=== PATIENT | male | born 1960 | race Caucasian/White ===

== ENCOUNTER 2020-11-20 17:38 | Inpatient (IN) | payer BC ==
[~2020-11-20] VITALS: Ht 180.3 cm; Wt 105.7 kg
[2020-11-20 18:28] LABS: HEMOGLOBIN 16.5 gm/dl (14.0-17.5); RED BLOOD COUNT 5.15 M/UL (4.20-5.50); WHITE BLOOD COUNT 7.5 K/UL (4.5-11.0)
[2020-11-20 18:45] LABS: BUN/CREATININE RATIO 23 (0-10)
[2020-11-21 03:57] LABS: HEMOGLOBIN 15.2 gm/dl (14.0-17.5); RED BLOOD COUNT 4.8 M/UL (4.20-5.50); WHITE BLOOD COUNT 5.7 K/UL (4.5-11.0)
[2020-11-21 04:13] LABS: BUN/CREATININE RATIO 25 (0-10)
[2020-11-21] MEDS ORDERED: LISINOPRIL10 MG PO (10:10)
[2020-11-21] MEDS ORDERED: MULTI COMPLETE1 EACH PO (10:12)
--- NOTE | 2020-11-21 19:31 | NUR ---
1905 CONTACTED PHARMACY ABOUT REMDESEVIR NOT BEING AVAILABLE. SHE WILL HAVE PIPE FINISHING SUPERVISOR FIND REMDESEVIR AND BRING TO 4TH FLOOR.
[2020-11-22 03:58] LABS: HEMOGLOBIN 14.9 gm/dl (14.0-17.5); RED BLOOD COUNT 4.69 M/UL (4.20-5.50); WHITE BLOOD COUNT 7.6 K/UL (4.5-11.0)
[2020-11-22 04:13] LABS: BUN/CREATININE RATIO 28 (0-10)
[2020-11-23 06:55] LABS: HEMOGLOBIN 15.6 gm/dl (14.0-17.5); RED BLOOD COUNT 4.93 M/UL (4.20-5.50); WHITE BLOOD COUNT 9.5 K/UL (4.5-11.0)
[2020-11-23 07:25] LABS: BUN/CREATININE RATIO 27 (0-10)
--- NOTE | 2020-11-23 10:02 | NUR ---
PATIENT ROOM AIR SAT 88%
[2020-11-23] MEDS ORDERED: DECADRON6 MG PO (14:44)
[2020-11-23] MEDS ORDERED: ECOTRIN81 MG PO (14:44)
[2020-11-23] MEDS ORDERED: VENTOLIN HFA 66.7 GM INH (14:44)
== END 2020-11-23 16:44 | disposition home or self-care (01) | DRG 177 ==
LOC: ER1 17:38 → CDU 20:07 → MED SURG 4 20:07
PROVIDERS: Internal Medicine; Internal Medicine Infectious Disease; Physician Assistant Medical; ADMIT Internal Medicine
PROC: 3E0333Z Introduction of Anti-inflammatory into Peripheral Vein, Percutaneous Approach (ICD-10-PCS; 2020-11-20)
PROC: XW033E5 Introduction of Remdesivir Anti-infective into Peripheral Vein, Percutaneous Approach, New Technology Group 5 (ICD-10-PCS; 2020-11-20)
PROC: 8E0ZXY6 Isolation (ICD-10-PCS; principal; 2020-11-21)
DX: U07.1 COVID-19 (principal); J12.82 Pneumonia due to coronavirus disease 2019; J96.01 Acute respiratory failure with hypoxia; I10 Essential (primary) hypertension; F17.210 Nicotine dependence, cigarettes, uncomplicated; Z79.82 Long term (current) use of aspirin
CPT/HCPCS: 0240U; 36415; 36600; 71045; 80048; 80053; 82803; 83615; 83735; 84484; 85025; 85027; 85379; 86140; 86900; 86901; 93005; 94664; 99284; J0456; J0696; J1100; J1650; J7030